=== PATIENT | female | born 1940 | race Caucasian/White ===

== ENCOUNTER 2021-11-03 04:46 | Inpatient (IN) | payer MEDICARE, OTHER ==
[~2021-11-03] VITALS: Ht 149.9 cm; Wt 50.0 kg
--- NOTE | 2021-11-03 04:56 | NUR ---
Dr Crump at bedside, MSE in progress.
[2021-11-03] MEDS ORDERED: IV NORMAL SALINE 1000 ML BAG IV ONE (05:00)
[2021-11-03 05:25] LABS: HEMATOCRIT 39.5 % (31.2-41.9); MEAN CORPUSCULAR HEMOGLOBIN 33.2 uug (24.7-32.8); MEAN CORPUSCULAR VOLUME 97.8 fL (75.5-95.3); PLATELET COUNT (AUTO) 243 K/uL (179-408)
--- NOTE | 2021-11-03 05:32 | NUR ---
pt taken to CT
[2021-11-03 05:33] LABS: CARBON DIOXIDE 31 mmol/L (21-32); CHLORIDE 103 mmol/L (98-107); CREATININE 0.9 mg/dL (0.6-1.3); GLUCOSE 111 mg/dL (74-106); POTASSIUM 3.7 mmol/L (3.5-5.1); UREA NITROGEN, BLOOD 16 mg/dL (7-18)
[2021-11-03 05:36] LABS: *BILIRUBIN,URIN NEGATIVE (NEGATIVE); *BLOOD, URINE NEGATIVE (NEGATIVE); *CLARITY,URINE CLEAR (CLEAR); *COLOR,URINE YELLOW (YELLOW); *KETONES,URINE NEGATIVE (NEGATIVE); *UROBILINOGEN,URINE 0.2 E.U./dl (NORMAL); LEUKOCYTE ESTERASE ,URINE NEGATIVE (NEGATIVE); NITRITE, URINE NEGATIVE (NEGATIVE); PH,URINE 5.5 (5.0-8.0); UGLUCOSE NEGATIVE (NEGATIVE)
[2021-11-03] MEDS ORDERED: ROSU10TA2 PO (05:39)
[2021-11-03] MEDS ORDERED: LEVO75TA PO (05:39)
[2021-11-03] MEDS ORDERED: ASPI81TA31 PO (05:39)
--- NOTE | 2021-11-03 05:45 | NUR ---
pt returned from CT
[2021-11-03 05:48] LABS: ALANINE AMINOTRANSFERASE 17 U/L (14-59); ALKALINE PHOSPHATASE 65 U/L (50-136); ASPARTATE AMINOTRANSFERASE 19 U/L (15-37); BILIRUBIN,DIRECT 0.1 mg/dL (0.0-0.2); BILIRUBIN,TOTAL 0.4 mg/dL (0.2-1.0); TOTAL PROTEIN, SERUM 7.4 g/dL (6.4-8.2)
[2021-11-03 05:50] LABS: THYROID STIMULATING HORMONE 8.299 mIU/mL (0.358-3.740)
--- NOTE | 2021-11-03 05:58 | NUR ---
Called [facility] for panel call
[2021-11-03 06:03] LABS: MAGNESIUM 2.2 mg/dL (1.8-2.4)
[2021-11-03] MEDS ORDERED: CYANOCOBALAMIN 1000 MCG/ML VIAL ONE (06:11)
[2021-11-03] MEDS ORDERED: ACETAMINOPHEN 325 MG TABLET PO PRN (06:15)
[2021-11-03] MEDS ORDERED: CYANOCOBALAMIN 1000 MCG/ML VIAL IM ONE (06:15)
[2021-11-03] MEDS ORDERED: MAGNESIUM HYDROXIDE 30 ML LIQUID UDC PO PRN (06:15)
[2021-11-03] MEDS ORDERED: REMEDY ESSENTIAL ZINC PASTE 113 GM TP PRN (06:15)
[2021-11-03] MEDS ORDERED: ONDANSETRON 4 MG/2 ML VIAL IV PRN (06:15)
--- NOTE | 2021-11-03 06:55 | NUR ---
pt had a episode of blank staring and not responding. ER MD notified
--- NOTE | 2021-11-03 07:34 | NUR ---
Called to give report. Stated that the nurse will call back.
--- NOTE | 2021-11-03 08:06 | NUR ---
critical lactic acid of 2.6 Dr. molina
[2021-11-03] MEDS ORDERED: ACETAMINOPHEN 325 MG TABLET ONE (08:18)
[2021-11-03 08:28] VITALS: BP 118/62
--- NOTE | 2021-11-03 09:00 | NUR ---
Patient admitted to telemetry, NSR on monitor. Patient is [place] speaking, unable to answer questions at this time with the exception of her name. Patient able to speak clearly and states she is okay. Un able to verbalize reason for hospitalization. Daughter at bedside and able to translate. Per daughter patient has not been diagnosed with TIA or CVA but had one episode of AMS in which she was hospitalized and no diagnosis was given in June 2020. IV to left FA, patent and intact. All needs attended, call light within reach.
--- NOTE | 2021-11-03 10:00 | NUR ---
Dr. Hernandez made aware of patient fluctuating mentation. patient has episodes of blank stare and confusion. ABG ordered and reported back to MD. P02 elevated. Able to titrate patient to 0.5L via NC, 02 sats 98-100%.
[2021-11-03] MEDS: PANTOPRAZOLE SODIUM 40 MG TABLET.DR PO SCH (10:11)
[2021-11-03] MEDS ORDERED: LEVO25TA9 PO (10:20)
[2021-11-03] MEDS: ENOXAPARIN SODIUM 40 MG/0.4 ML DISP.SYRIN SQ SCH (10:21)
[2021-11-03] MEDS: IV 1/2NS 1000 ML 1,000 ML IV PRN (10:27)
[2021-11-03 10:43] LABS: ABG BASE EXCESS 1.7 mmol/L; ABG HCO3 26.2 mmol/L; ABG PCO2 40.7 mmHg (35.0-45.0); ABG PH 7.426 (7.350-7.450); ABG PO2 158.5 mmHg (75.0-100.0); ABG SITE LEFT BRACHIAL; ABG TOTAL HEMOGLOBIN 12.6 G/dL (12.0-16.0); COHb 0.3 % (0.5-1.5); MetHb 0.4 % (0.0-1.5); O2Hb 98.4 % (94.0-97.0); VENT MODE Nasal Cannula
[2021-11-03 11:40] VITALS: BP 129/66
[2021-11-03 16:00] VITALS: BP 91/41
--- NOTE | 2021-11-03 18:58 | NUR ---
Patient is AAOx4, awake and eating with supervision of daughter at bedside. patient had one more episode of altered mentation before noon, momentary. Patient table to sleep intermittently for this shift. patient states she feels rested.
--- NOTE | 2021-11-03 19:30 | NUR ---
Received pt awake, alert and orientedx3. Daughter at bedside. Pt on room air . Pt in no acute distress. Iv intact. Safety and comfort provided. Will continue to monitor.
[2021-11-03 20:06] VITALS: BP 120/52
[2021-11-04 00:06] VITALS: BP 118/50
[2021-11-04] MEDS: IV 1/2NS 1000 ML 1,000 ML IV PRN (03:30)
[2021-11-04 04:15] VITALS: BP 95/49
--- NOTE | 2021-11-04 05:48 | NUR ---
Pt slept intermittently. Pt in no acute respiratory distress. Iv intact. Pt on sinus rhythm.Prescribed medication given and pt tolerated it well.Pt can make her needs known. All needs are met. Safety and comfort provided. Will endorse to incoming nurse for continuity of care.
[2021-11-04] MEDS: PANTOPRAZOLE SODIUM 40 MG TABLET.DR PO SCH (06:29)
[2021-11-04 06:52] LABS: HEMATOCRIT 35.6 % (31.2-41.9); MEAN CORPUSCULAR HEMOGLOBIN 33.2 uug (24.7-32.8); MEAN CORPUSCULAR VOLUME 98.7 fL (75.5-95.3); PLATELET COUNT (AUTO) 228 K/uL (179-408)
--- NOTE | 2021-11-04 07:30 | NUR ---
Sleeping, appears comfortable. IVF infusing. Bed alarm on
[2021-11-04 07:31] LABS: CARBON DIOXIDE 29 mmol/L (21-32); CHLORIDE 106 mmol/L (98-107); CHOLESTEROL 157 mg/dL (<200); CREATININE 0.8 mg/dL (0.6-1.3); GLUCOSE 89 mg/dL (74-106); HDL CHOLESTEROL 53 mg/dL (40-60); MAGNESIUM 2.2 mg/dL (1.8-2.4); PHOSPHOROUS 3.3 mg/dL (2.5-4.9); POTASSIUM 3.9 mmol/L (3.5-5.1); TRIGLYCERIDES 69 MG/DL (30-150); UREA NITROGEN, BLOOD 10 mg/dL (7-18)
[2021-11-04] MEDS ORDERED: FUROSEMIDE 20 MG/2 ML VIAL IV ONE ×2 (09:00→10:30)
[2021-11-04] MEDS: ENOXAPARIN SODIUM 40 MG/0.4 ML DISP.SYRIN SQ SCH (10:20)
[2021-11-04] MEDS ORDERED: Medication Not On Formulary EA (Rosuvastatin Calcium (Crestor) 1 TAB) PO SCH (10:30)
[2021-11-04] MEDS: ASPIRIN 81 MG TAB.CHEW PO SCH (11:51)
[2021-11-04 12:00] VITALS: BP 106/40
--- NOTE | 2021-11-04 12:00 | NUR ---
To [facility] for MRI Brain without contrast via ambulance
--- NOTE | 2021-11-04 13:32 | NUR ---
back from [facility], MRI Brain done
[2021-11-04 16:00] VITALS: BP_SYST 103; BP_DIAS 14; BP_DIAS 41
--- NOTE | 2021-11-04 18:11 | NUR ---
Eating fairly. Not in distress. Free from fall and injury.
--- NOTE | 2021-11-04 19:50 | NUR ---
RECEIVED PT IN BED. AAO X 4. ON ROOM AIR. IV INTACT AND PATENT ON L FA 20G. ABLE TO AMBULATE TO BATHROOM. DENIES ANY PAIN. ALL NEEDS ATTENDED. CALL LIGHT IN REACH. LEFT BED IN LOWEST POSITION. WILL CONTINUE TO MONITOR.
[2021-11-04 20:00] VITALS: BP 97/46
[2021-11-04] MEDS ORDERED: ATORVASTATIN 20 MG TABLET PO SCH (21:00)
[2021-11-05] VITALS: BP 127/61
[2021-11-05 04:00] VITALS: BP 113/44
[2021-11-05] MEDS: PANTOPRAZOLE SODIUM 40 MG TABLET.DR PO SCH (06:43)
[2021-11-05] MEDS ORDERED: LEVOTHYROXINE SODIUM 50 MCG TABLET PO SCH (07:00)
[2021-11-05] MEDS: ASPIRIN 81 MG TAB.CHEW PO SCH (08:35)
[2021-11-05] MEDS: ENOXAPARIN SODIUM 40 MG/0.4 ML DISP.SYRIN SQ SCH (08:38)
[2021-11-05 12:08] VITALS: BP 121/47
[2021-11-05 16:00] VITALS: BP 98/46
[2021-11-05] MEDS ORDERED: levETIRAcetam 500 MG TABLET PO SCH (16:30)
[2021-11-05] MEDS ORDERED: LEVE500T9 PO (17:01)
--- NOTE | 2021-11-05 18:14 | NUR ---
Pt is being discharged home. Discharge education and materials given to pt and grandson at bedside. Pt lives with grandson and will have help. Medications sent electronically, IV and ID bands removed. Pt is ambulatory, a/o x 4 [place] Citizen speaking. No complaints of pain, no signs of acute distress.
== END 2021-11-05 18:05 | disposition home or self-care (01) | DRG 69 ==
LOC: ER 04:51 → TELE3 08:15
PROVIDERS: ADMIT Nurse Practitioner Family; ATTEND Internal Medicine
DX: G45.9 Transient cerebral ischemic attack, unspecified (principal); I50.31 Acute diastolic (congestive) heart failure; E87.2 Acidosis; R56.9 Unspecified convulsions; R41.82 Altered mental status, unspecified; E03.9 Hypothyroidism, unspecified; I67.89 Other cerebrovascular disease; E78.5 Hyperlipidemia, unspecified; Z79.899 Other long term (current) drug therapy; M19.90 Unspecified osteoarthritis, unspecified site; Z88.0 Allergy status to penicillin; Z79.890 Hormone replacement therapy; R94.01 Abnormal electroencephalogram [EEG]; Z79.82 Long term (current) use of aspirin; I83.12 Varicose veins of left lower extremity with inflammation; I83.11 Varicose veins of right lower extremity with inflammation
CPT/HCPCS: 36415; 36600; 70450; 70551; 71045; 83605; 83735; 83921; 84100; 84443; 84484; 85025; 85730; 87040; 87086; 93005; 93307; 95819; 97161; A4663; C1758; G0378; J1650; J1940; J3420; J7040